=== PATIENT | male | born 1980 | race Caucasian/White ===

== ENCOUNTER 2023-10-07 13:26 | Outpatient (REF) | payer OTHER, SELFPAY | END 2023-10-07 13:27 | disposition home or self-care (01) | LOC: HO.HHCL 13:26 | PROVIDERS: Visit Provider Nurse Practitioner Family | DX: Z13.89 Encounter for screening for other disorder (principal) ==

== ENCOUNTER 2023-10-14 14:28 | Outpatient (REF) | payer OTHER, SELFPAY | END 2023-10-14 14:29 | disposition home or self-care (01) | LOC: HO.HHCL 14:28 | PROVIDERS: Visit Provider Nurse Practitioner Family | DX: Z11.3 Encounter for screening for infections with a predominantly sexual mode of transmission (principal) | CPT/HCPCS: 36415 ==

== ENCOUNTER 2023-11-04 11:19 | Outpatient (REF) | payer OTHER, SELFPAY ==
[2023-11-04 12:53] LABS: Alanine Aminotransferase 17 U/L (0-40); Albumin Level 4.2 g/dL (3.5-5.0); Alkaline Phosphatase 48 U/L (39-117); Anion Gap 8 (12-20); Aspartate Amino Transferase 15 U/L (5-37); Blood Urea Nitrogen 13 mg/dL (9-16); Calcium 9.2 mg/dL (8.4-10.2); Carbon Dioxide 28 mmol/L (22-29); Chloride 110 mmol/L (96-108); Cholesterol 162 mg/dL (<200); Estimated Glomerular Filt Rate > 60; Glucose Random 98 mg/dL (60-115); HDL Cholesterol 42 mg/dL (>40); LDL Cholesterol Calculated 103 mg/dL (<100); Potassium 4.5 mmol/L (3.3-5.1); Sodium 141 mmol/L (135-145); Total Protein 6.6 g/dL (6.5-8.0); Triglycerides 88 mg/dL (<150)
[2023-11-04 14:42] LABS: CT PCR NOT DETECTED (Not Detect.); NG PCR NOT DETECTED (Not Detect.)
[2023-11-05 08:36] LABS: ~HepC Num1 0.07 S/CO (0.00-0.79); ~Hepatitis C Antibody Nonreactive (Nonreactive)
[2023-11-06 14:22] LABS: RPR Rapid Plasma Reagin NON-REACTIVE (NON-REACTIVE)
[2023-11-06 18:08] LABS: HIV RNA PCR Qn Copies Not Detected Copies/mL; HIV RNA PCR Qn Log Copies Not Detected Log cps/mL
== END 2023-11-04 11:20 | disposition home or self-care (01) ==
LOC: HO.LAB 11:19
PROVIDERS: PCP Nurse Practitioner Family; Visit Provider Nurse Practitioner Family
DX: Z00.00 Encounter for general adult medical examination without abnormal findings (principal); Z11.3 Encounter for screening for infections with a predominantly sexual mode of transmission
CPT/HCPCS: 0353U; 36415; 80053; 80061; 86592; 86803; 87536; 87900

== ENCOUNTER 2025-01-18 14:10 | Outpatient (REF) | payer OTHER, SELFPAY ==
--- OUTSIDE RECORDS SUMMARY | 2025-01-18 15:09 | XMS_ITS | Encounter Summary ---
Author Organization [employer] Address [address] [place] [address] Care Team Providers Care Corrosion Control Technician Name Role Phone Natalia Olguin NP Primary Care Provider [phone] Maty Chiu MD Primary Care Provider [phone] Encounter Details Date Type Department Care Team (Late st Contact Info) Description 07/26/2024 Orders Only [facility] [address] [place], [place] [phone] Natalia Olguin NP [address] [place] [address] Social History Tobacco Use Types Packs/Day Years Used Date Smoking Tobacco: Every Day Cigarettes 0.5 20 Smokeless Tobacco: Current Comments:Started smoking at age 22 Alcohol Use Standard Drinks/Week Comments Yes 4 (1 standard drink = 0.6 oz pur e alcohol) drinks vodka, rum and wine Depression Answer Date Recorded Patient Health Questionnaire-9 Score 3 09/24/2023 Patient Health Questionnaire-9 Score 3 09/24/2023 Last PHQ-9: Questionnaire Data Not on file 0 09/24/2023 Housing Stability Answer Date Recorded What is your housing situation today? I have seun rick 09/24/[address] you li ve. Do you have problems with any of the following? None of the above 09/24/2023 Food Insecurity Answer Date Recorded Within the past 12 months, y ou worried that your food would run out before you got money to buy more: Never True 09/24/2023 Within the past 12 months,th e food you bought just didn't last and you didn't have enough money to get more: Never True 05/2023 Transportation Answer Date Recorded In the past 12 months, has l ack of transportation kept you from medical appts, meetings, work or from getting things needed for daily living? No 09/24/2023 Utilities Answer Date Recorded In the past 12 months, has t he electric, gas, oil or water company threatened to shut off services in your home? No 09/24/2023 Depression Answer Date Recorded Patient Health Questionnaire-2 Score 0 09/24/2023 Sex and Gender Information Value Date Recorded Sex Assigned at Male 07/09/2023 3:12 PM EST Legal Sex Male 4:15 PM EST Gender Identity Male 09/24/2023 2:21 PM EDT Sexual Orientation Straight 09/24/2023 2: 18 PM EDT documented as of this encounter Plan of Treatment Not on file documented as of this encounter Visit Diagnoses Not on filedocumented in this encounter Additional Health Concerns Assessment Noted Time PHQ-9 Depression Total Score: 3 09/24/19 24 3:58 PM EDT documented as of this encounter Care Teams Corrosion Control Technician Relationship Specialty Start Date End Date Natalia Olguin NP [address] [place] [address] PCP - General Family Medicine 01/27/24 01/03/25 Maty Chiu MD [address] [place] [address] PCP - General Family Medicine 01/04/25 documented as of this encounter
--- OUTSIDE RECORDS SUMMARY | 2025-01-18 15:10 | XMS_ITS | Encounter Summary ---
Author Organization [email or web address] Address [address] [place] [address] Care Team Providers Care Mailroom Courier Name Role Phone Maty Chiu MD Primary Care Provider Encounter Details Date Type Department Care Team (Late st Contact Info) Description 01/18/2025 Telephone [facility] [address] [place], [place] [phone] Maty Chiu MD [address] [place], [place] [phone] Social History Tobacco Use Types Packs/Day Years [...] PM EDT documented as of this encounter Miscellaneous Notes * Telephone Encounter - Khadar Anand RN - 01/18/2025 1:55 PM EDT PrEP navigator requesting screening labs. Ordered. documented in this encounter Plan of Treatment Scheduled Orders Name Type Priority Associated Diagnoses Orde r Schedule HIV-1/2 Antigen and Antibodies, Fourth Generation, with Reflexes Lab Routine Routine screening for STI (sexually transmitted infection) Expected: 01/18/2025 (Approximate), Expires: 01/18/2026 Hepatitis C Antibody with Reflex to HCV, RNA, Quantitative, Real-Time PCR Lab Routine Routine screening for STI (sexually transmitted infection) Expected: 01/18/2025 (Approximate), Expires: 01/18/2026 Syphilis Screen Lab Routine Routine screening for STI (sexually transmitted infection) Expected: 01/18/2025 (Approximate), Expires: 01/18/2026 Creatinine, Serum Lab Routine Routine screening for STI (sexually transmitted infection) Expected: 01/18/2025, Expires: 01/18/2026 documented as of this encounter Visit Diagnoses Diagnosis Routine screening for STI (sexually transmitted infection) Screening examination for venereal disease documented in this encounter Additional Health Concerns Assessment Noted Time PHQ-9 Depression Total Score: 3 09/24/19 24 3:58 PM EDT documented as of this encounter Care Teams Mailroom Courier Relationship Specialty Start Date End Date Maty Chiu MD [address] [place] [id number] PCP - General Family Medicine 01/04/25 documented as of this encounter
--- OUTSIDE RECORDS SUMMARY | 2025-01-18 15:10 | XMS_ITS | Clinical Summary ---
Author Organization [employer] Address [address] [facility] [address] [place] [address] Care Team Providers Care Title Manager Name Role Phone Maty Chiu MD Primary Care Provider [phone] Allergies Active Allergy Reactions Criticality Noted Date Comments Amoxicillin Hives 09/18/2023 tolerated bicillin October 2019 Medications albuterol 108 (90 Base) MCG/ACT inhaler Inhale 2 puffs every 4 (four) hours if needed for wheezing. 18 g 3 09/24/2023 Active Active Problems No known active problems Encounters Date Type Department Care Team Description 01/18/2025 Telephone [facility] [address] [place] [address] Maty Chiu MD from Last 3 Months Immunizations Immunization Administration Dates Next Due DTP 03/14/1987, 4,1982,1982,06/26/18 83 Hep B, Unspecified 12/12/2005,07/16/2005, 006 IPV 07/16/2005,10/15/1983,1982 MMR 09/22/1994,10/24/1983 Td (adult), unspecified 01/05/1998 Tdap 09/24/2023,06/24/2011 Family History Medical History Relation Name Comments Hypotension Father Bone cancer Maternal Grandfather Leukemia Maternal Grandmother Hypertension Mother Osteoporosis Mother Diabetes type II Paternal Grandmother Endometriosis Sister Relation Name Status Comments Father Maternal Grandfather Maternal Grandmother Mother Paternal Grandmother Sister Social History Tobacco Use Types Packs/Day Years [...] the past 12 months, has t he [email or web address], gas, oil or water [employer] threatened to shut off services in your home? No 09/24/2023 Depression Answer Date Recorded Patient Health Questionnaire-2 Score 0 09/24/2023 Sex and Gender Information Value Date Recorded Sex Assigned at Male 07/09/2023 3:12 PM EST Legal Sex Male 4:15 PM EST Gender Identity Male 09/24/2023 2:21 PM EDT Sexual Orientation Straight 09/24/2023 2: 18 PM EDT Last Filed Vital Signs Vital Sign Reading Time Taken Comments Blood Pressure 119/72 09/24/2023 2:30 PM EDT Pulse 68 09/24/2023 2:30 PM EDT Temperature - - Respiratory Rate 20 09/24/2023 2:30 PM EDT Oxygen Saturation 95% 09/24/2023 2:30 PM EDT Inhaled Oxygen Concentration - - Weight 86.4 kg (190 lb 6.4 oz) 09/24/2023 2:30 P M EDT Height 180.3 cm (5' 11 ) 09/24/2023 2:30 PM EDT Body Mass Index 26.56 09/24/2023 2:30 PM EDT Plan of Treatment Health Maintenance Due Date Last Done Comments HIV Screening 1982 Disability Screening 1982 Alcohol/Substance Use Screening 1994 Family Planning (PISQ) 1997 HPV Vaccines (1 - Male 3-dose series) 1997 Pneumococcal Vaccine: Pediatrics (0 to 5 Years) and At-Risk Patients (6 to 49) Years (1 of 2 - PCV) 2001 COVID-19 Vaccine (3 - season) 2024 07/26/2020, 07/05/2020 Depression Screening 09/23/2024 09/24/2023, 09/24/19 24 SDOH Screening 09/23/2024 09/24/2023 Tobacco Screening 09/23/2024 09/24/2023 Influenza Vaccine (#1) 2025 Lipid Panel 11/03/2028 11/04/2023 Zoster Vaccines (1 of 2) 2032 DTaP/Tdap/Td Vaccines (8 - Td or Tdap) 09/23/2033 09/24/2023, 06/24/2011, 01/05/1998, Additional history exists RSV Patients and Patients Aged 60 years or older (1 - 1-dose 75+ series) 2057 IPV Vaccines Completed 07/16/2005, 09/24, 1982 Hepatitis B Vaccines Completed 12/12/2005, 07/16/2005, 06/13/2005 Hepatitis C Screening Completed 11/04/2023 HIB Vaccines Aged Out No longer eligi ble based on patient's age to complete this topic Hepatitis A Vaccines Aged Out No long er eligible based on patient's age to complete this topic Meningococcal B Vaccine Aged Out No l onger eligible based on patient's age to complete this topic Meningococcal Vaccine Aged Out No alexander jenn eligible based on patient's age to complete this topic RSV under 20 months Aged Out No longe r eligible based on patient's age to complete this topic Rotavirus Vaccines Aged Out No longer eligible based on patient's age to complete this topic Procedures Procedure Name Priority Date/Time Associated Diagnosis Comments HEPATITIS C AB W/REFL TO HCV RNA, QN, PCR Routine 11/04/2023 11:50 AM EDT Routine screening for STI (sexually transmitted infection) LIPID PANEL, STANDARD Routine 11/04/2023 11:50 AM EDT Routine general medical examination at a health care facility from Last 3 Months or Most Recently Relevant to Health Maintenance Results * Hepatitis C Antibody with Reflex to HCV, RNA, Quantitative, Real-Time PCR (11/04/2023 11:50 AM EDT) Hepatitis C Antibody Nonreactive Nonreactive [facility] Comment:Antibodies to HCV no t detected; does not exclude early acuteHCV infection. Blood Venous blood specimen / Unknown 11/04/2023 11:50 AM EDT 11/04/2023 11:50 AM EDT Bhavna Nguyen [employer] [facility] [facility] BLOOD ORDERABLES Final Resu lt [facility] [address] [place] [address] [phone] * (ABNORMAL) Lipid Panel, Standard (11/04/2023 11:50 AM EDT) Triglycerides 88 <150 mg/dL [facility] Comment:Desirable Triglyceri de: less than 150 mg/dLBorderline High Triglyceride 150-199 mg/dLHigh Triglyceride: 200-499 mg/dLVery High Triglyceride: greater than or equal to 5OO mg/dL Cholesterol 162 <200 mg/dL [facility] Comment:Desirable Cholestero l: less than 200 mg/dLBorderline High Cholesterol: 200-239 mg/dLHigh Cholesterol: greater than 239 mg/dL LDL Cholesterol Calculated 103(H) <100 mg/dL [facility] Comment:Desirable LDL: less than 100 mg/dLNear Optimal/Above Optimal LDL: 110- 129 mg/dLBorderline High LDL: 130-159 mg/dLHigh LDL: 160-189 mg/dLVery High LDL: greater than or equal to 190 mg/dL HDL Cholesterol 42 >40 mg/dL [facility] Comment:Desirable HDL: great er than 40 mg/dL Note: This HDL assay may give artificially low results in patients with liver disease. Blood Venous blood specimen / Unknown 11/04/2023 11:50 AM EDT 11/04/2023 11:50 AM EDT Bhavna Nguyen [employer] [facility] BLOOD ORDERABLES Final Resu lt [facility] [address] [place] [address] [phone] from Last 3 Months or Most Recently Relevant to Health Maintenance Insurance [facility] , [address] [place] [address] Care Teams Title Manager Relationship Specialty Start Date End Date Maty Chiu MD [address] [place] [address] PCP - General Family Medicine 01/04/25
[2025-01-18 16:54] LABS: Estimated Glomerular Filt Rate > 60
[2025-01-19 08:13] LABS: HIV Num 1 0.05 S/CO (0.00-0.99); ~HepC Num1 0.11 S/CO (0.00-0.79); ~Hepatitis C Antibody Nonreactive (Nonreactive)
[2025-01-19 08:18] LABS: Syphilis Screen Reactive (Nonreactive)
[2025-01-25 12:03] LABS: T.Pallidum Particle Agg Test Reactive (Nonreactive)
== END 2025-01-18 14:11 | disposition home or self-care (01) ==
LOC: HO.HHCL 14:10
PROVIDERS: PCP General Practice; Visit Provider General Practice
DX: Z11.3 Encounter for screening for infections with a predominantly sexual mode of transmission (principal); Z11.59 Encounter for screening for other viral diseases; Z11.4 Encounter for screening for human immunodeficiency virus [HIV]
CPT/HCPCS: 36415; 82565; 86592; 86780; 86803; 87389